=== PATIENT | male | born 1975 | race Caucasian/White ===

== ENCOUNTER 2024-11-04 01:42 | Inpatient (IN) | payer SELFPAY ==
[~2024-11-04] VITALS: Ht 172.7 cm; Wt 71.8 kg
[2024-11-04 01:45] VITALS: RESP 40
[2024-11-04] MEDS: ASPIRIN 81MG TABLET PO ONE (02:00)
[2024-11-04] MEDS: HYDRALAZINE 20MG/ML VIAL IV ONE ×2 (02:04→06:07)
[2024-11-04 02:15] LABS: CHLORIDE 105 mEq/L (98-107); POTASSIUM 4.6 mEq/L (3.5-5.1); SODIUM 142 mEq/L (136-145)
[2024-11-04 02:16] LABS: CARBON DIOXIDE 25 mEq/L (21-32)
[2024-11-04 02:22] LABS: GLUCOSE 117 mg/dL (70-105); UREA NITROGEN BLOOD 64 mg/dL (9-23)
[2024-11-04 02:23] LABS: ALANINE AMINOTRANSFERASE 18 IU/L (10-49)
[2024-11-04 02:24] LABS: ALBUMIN 3.7 g/dL (3.2-4.8); ASPARTATE AMINOTRANSFERASE 22 IU/L (<34); BILIRUBIN TOTAL 0.2 mg/dL (0.1-1.0); TROPONIN I HIGH SENSITIVITY 32 ng/L (3.0-53)
[2024-11-04 02:29] LABS: BG BASE EXCESS 3.4 mmol/L (-2.0-3.0); BG CARBOXYHEMOGLOBIN 0.4 % (0.5-1.5); BG DEOXYHEMOGLOBIN 0.5 % (0.0-5.0); BG FRACTION INSPIRED OXYGEN 50; BG HCO3 ACT 28.2 mmol/L (21.0-28.0); BG METHEMOGLOBIN 0.3 % (0.5-1.5); BG OXYGEN SATURATION 99.5 % (94.0-98.0); BG OXYHEMOGLOBIN 98.8 % (94.0-98.0); BG PCO2 43.8 mmHg (35.0-48.0); BG PH 7.426 (7.350-7.450); BG PO2 246.1 mmHg (83.0-108.0); BG SAMPLE SITE RIGHT RADIAL; BG TOTAL HEMOGLOBIN 9.2 g/dL (13.5-17.5); BG VENT MODE MASK - BIPAP
[2024-11-04 02:33] LABS: BILIRUBIN DIRECT < 0.1 mg/dL (<=3.0); CREATININE 9.9 mg/dL (0.6-1.3)
[2024-11-04 02:37] LABS: BASOPHILS % 0.8 % (0.0-2.0); EOSINOPHILS % 6.4 % (0.0-5.0); HEMATOCRIT. 24.1 % (42.0-52.0); HEMOGLOBIN. 8.1 g/dL (14.0-18.0); LYMPHOCYTES % 15.6 % (20.0-50.0); MEAN CORPUSCULAR HEMOGLOBIN 30.9 pg (28.0-32.0); MEAN CORPUSCULAR HGB CONC 33.5 g/dL (31.0-37.0); MEAN CORPUSCULAR VOLUME 92.3 fL (80.0-94.0); MEAN PLATELET VOLUME 7.5 fl (7.4-10.4); MONOCYTES % 6.7 % (2.0-8.0); NEUTROPHILS % 70.5 % (40.0-76.0); PLATELET 286 x1000/uL (130-400); RED BLOOD CELL COUNT 2.61 mill/uL (4.7-6.1); RED CELL DISTRIBUTION WIDTH 17.2 % (11.6-14.6); WHITE BLOOD COUNT 11.2 x1000/uL (4.5-11.0)
[2024-11-04 04:21] VITALS: RESP 28
[2024-11-04 04:48] LABS: PARTIAL THROMBOPLASTIN TIME 27.9 sec (23.4-31.0); PROTHROMBIN TIME 11.4 sec (9.6-11.0)
[2024-11-04] MEDS: ASPIRIN 81MG TABLET PO NR (06:32)
[2024-11-04] MEDS ORDERED: CEFEPIME 1GM IN DEXT 5% 50ML IV SCH (10:45)
[2024-11-04] MEDS ORDERED: IPRATROPIUM/ALBUTEROL 0.5-3(2.5)MG/3ML NEB HHN PRN (11:00)
[2024-11-04] MEDS ORDERED: DOCUSATE SODIUM 100MG CAPSULE PO PRN (11:00)
[2024-11-04] MEDS ORDERED: ONDANSETRON HCL 4MG/2ML INJ IV PRN (11:00)
[2024-11-04] MEDS ORDERED: ACETAMINOPHEN 325MG TABLET PO PRN ×2 (11:00)
[2024-11-04 11:45] LABS: HEPATITIS B SURFACE ANTIGEN NEGATIVE (Negative)
[2024-11-04 12:07] LABS: HEPATITIS B CORE AB IGM NEGATIVE (Negative)
[2024-11-04 12:08] LABS: HEPATITIS A AB IGM NEGATIVE (Negative); HEPATITIS C AB NON REACTIVE (Neg) (Negative)
[2024-11-04] MEDS: CEFEPIME 1GM PREMIX 50ML IV SCH (13:10)
[2024-11-04] MEDS: FAMOTIDINE 20MG TABLET PO SCH (16:39)
[2024-11-04] MEDS: MONTELUKAST SODIUM 10MG TABLET PO SCH (17:35)
[2024-11-04 18:11] LABS: *AMPHETAMINES SCREEN URINE NEGATIVE (NEGATIVE); *BARBITURATES SCREEN URINE NEGATIVE (NEGATIVE); *BENZODIAZEPINES SCREEN URINE NEGATIVE (NEGATIVE); *COCAINE SCREEN URINE NEGATIVE (NEGATIVE); CANNABINOID URINE SCREEN NEGATIVE (NEGATIVE); ECSTASY MDMA SCREEN URINE NEGATIVE (NEGATIVE); METHADONE URINE SCREEN NEGATIVE (NEGATIVE); OPIATES URINE SCREEN NEGATIVE (NEGATIVE); PHENCYCLIDINE URINE SCREEN NEGATIVE (NEGATIVE)
[2024-11-04] MEDS: IPRATROPIUM/ALBUTEROL 0.5-3(2.5)MG/3ML NEB HHN SCH (20:37)
[2024-11-04] MEDS: CLONIDINE 0.1MG TABLET PO PRN (22:21)
[2024-11-04] MEDS: FLUTICASONE PROPIONATE 50MCG/SPRAY BOTTLE BOTHNSTRLS SCH (22:22)
[2024-11-04 22:47] VITALS: BP 170/105; PULSE 101; RESP 18; TEMP 37.9192
[2024-11-05] VITALS (14 sets, daily range): BP systolic 148–175; BP diastolic 92–111; PULSE 76–97; RESP 16–20; TEMP 36.33624–36.78072; O2SAT 96–99
[2024-11-05 06:52] LABS: BASOPHILS % 0.4 % (0.0-2.0); EOSINOPHILS % 4.9 % (0.0-5.0); HEMATOCRIT. 21.6 % (42.0-52.0); HEMOGLOBIN. 7.2 g/dL (14.0-18.0); LYMPHOCYTES % 13.3 % (20.0-50.0); MEAN CORPUSCULAR HEMOGLOBIN 30.5 pg (28.0-32.0); MEAN CORPUSCULAR HGB CONC 33.1 g/dL (31.0-37.0); MONOCYTES % 8.8 % (2.0-8.0); NEUTROPHILS % 72.6 % (40.0-76.0); PLATELET 230 x1000/uL (130-400); RED BLOOD CELL COUNT 2.35 mill/uL (4.7-6.1); RED CELL DISTRIBUTION WIDTH 17.3 % (11.6-14.6); WHITE BLOOD COUNT 11.4 x1000/uL (4.5-11.0)
[2024-11-05 06:56] LABS: CALCIUM 9.1 mg/dL (8.7-10.4); CARBON DIOXIDE 24 mEq/L (21-32); CHLORIDE 102 mEq/L (98-107); POTASSIUM 4.7 mEq/L (3.5-5.1); SODIUM 140 mEq/L (136-145)
[2024-11-05 07:02] LABS: GLUCOSE 79 mg/dL (70-105); UREA NITROGEN BLOOD 96 mg/dL (9-23)
[2024-11-05 07:04] LABS: PHOSPHORUS 5.8 mg/dL (2.5-4.9)
[2024-11-05 07:23] LABS: CREATININE 14.1 mg/dL (0.6-1.3)
[2024-11-05] MEDS ORDERED: AMOX-431 MT (11:19)
[2024-11-05] MEDS: HYDRALAZINE 20MG/ML VIAL IV PRN (18:53)
[2024-11-05] MEDS: HYDRALAZINE HCL 25MG TABLET PO SCH (21:49)
[2024-11-05] MEDS: EPOETIN ALFA-EPBX 4,000 UNIT/ML VIAL SUBCUT NR (22:15)
[2024-11-06] VITALS (7 sets, daily range): BP systolic 139–173; BP diastolic 86–99; PULSE 94–104; RESP 17–20; TEMP 36.50292–36.83628; O2SAT 95–100
[2024-11-07] VITALS (8 sets, daily range): BP systolic 148–181; BP diastolic 86–115; PULSE 83–99; RESP 18–22; TEMP 36.55848–37.39188; O2SAT 95–100
[2024-11-07] MEDS: NIFEDIPINE XL 30MG TAB PO SCH (14:33)
[2024-11-07] MEDS: HYDRALAZINE HCL 25MG TABLET PO NR (14:33)
[2024-11-08] VITALS (14 sets, daily range): BP systolic 123–158; BP diastolic 62–95; PULSE 66–103; RESP 16–20; TEMP 36.55848–36.78072; O2SAT 100
[2024-11-08 05:58] LABS: CARBON DIOXIDE 23 mEq/L (21-32); CHLORIDE 102 mEq/L (98-107); POTASSIUM 4.8 mEq/L (3.5-5.1); SODIUM 141 mEq/L (136-145)
[2024-11-08 05:59] LABS: CALCIUM 9.3 mg/dL (8.7-10.4)
[2024-11-08 06:04] LABS: GLUCOSE 95 mg/dL (70-105)
[2024-11-08 06:06] LABS: PHOSPHORUS 6.6 mg/dL (2.5-4.9)
[2024-11-08 06:08] LABS: UREA NITROGEN BLOOD 103 mg/dL (9-23)
[2024-11-08 06:09] LABS: CREATININE 17.2 mg/dL (0.6-1.3)
[2024-11-08] MEDS: CARVEDILOL 12.5MG TABLET PO SCH (06:15)
[2024-11-08 07:05] LABS: BASOPHILS % 0.8 % (0.0-2.0); EOSINOPHILS % 7.5 % (0.0-5.0); HEMATOCRIT. 24.6 % (42.0-52.0); HEMOGLOBIN. 8.2 g/dL (14.0-18.0); LYMPHOCYTES % 14.2 % (20.0-50.0); MEAN CORPUSCULAR HEMOGLOBIN 30.7 pg (28.0-32.0); MEAN CORPUSCULAR HGB CONC 33.3 g/dL (31.0-37.0); MEAN CORPUSCULAR VOLUME 92.1 fL (80.0-94.0); MEAN PLATELET VOLUME 8.3 fl (7.4-10.4); MONOCYTES % 7.9 % (2.0-8.0); NEUTROPHILS % 69.6 % (40.0-76.0); PLATELET 240 x1000/uL (130-400); RED BLOOD CELL COUNT 2.67 mill/uL (4.7-6.1); RED CELL DISTRIBUTION WIDTH 16.6 % (11.6-14.6); WHITE BLOOD COUNT 10.8 x1000/uL (4.5-11.0)
[2024-11-08] MEDS ORDERED: FUROSEMIDE 40MG TABLET PO SCH (09:00)
[2024-11-08] MEDS ORDERED: LISINOPRIL 40MG TABLET PO SCH (09:00)
[2024-11-08] MEDS ORDERED: AMLODIPINE 10MG TABLET PO SCH (09:00)
== END 2024-11-08 11:30 | disposition home or self-care (01) | DRG 720 ==
LOC: ER 01:42 → 7EST 03:43 → EDBEDREQTM 03:52 → EDBEDREQ 03:52 → EDBEDREQSVC 18:39
PROVIDERS: ADMIT Internal Medicine; ATTEND Internal Medicine
PROC: 5A09357 Assistance with Respiratory Ventilation, Less than 24 Consecutive Hours, Continuous Positive Airway Pressure (ICD-10-PCS; 2024-11-04)
PROC: 5A1D70Z Performance of Urinary Filtration, Intermittent, Less than 6 Hours Per Day (ICD-10-PCS; principal; 2024-11-05)
PROC: 5A1D70Z Performance of Urinary Filtration, Intermittent, Less than 6 Hours Per Day (ICD-10-PCS; 2024-11-08)
DX: A41.9 Sepsis, unspecified organism (principal); J96.00 Acute respiratory failure, unspecified whether with hypoxia or hypercapnia; I31.39 Other pericardial effusion (noninflammatory); D72.10 Eosinophilia, unspecified; N18.6 End stage renal disease; I13.2 Hypertensive heart and chronic kidney disease with heart failure and with stage 5 chronic kidney disease, or end stage renal disease; D63.1 Anemia in chronic kidney disease; Z20.822 Contact with and (suspected) exposure to COVID-19; D64.9 Anemia, unspecified; E78.5 Hyperlipidemia, unspecified; J96.01 Acute respiratory failure with hypoxia; J00 Acute nasopharyngitis [common cold]; J98.4 Other disorders of lung; J81.1 Chronic pulmonary edema; I16.1 Hypertensive emergency; I50.9 Heart failure, unspecified; Z82.49 Family history of ischemic heart disease and other diseases of the circulatory system; Z99.2 Dependence on renal dialysis
CPT/HCPCS: 31720; 36415; 36600; 71045; 80048; 80076; 80305; 82375; 82805; 83735; 83880; 84100; 84145; 84484; 85025; 86705; 86709; 87340; 87426; 87804; 90935; 93005; 93306; 94640; 94660; 94760; 99291; J0360; J0692; J0885